=== PATIENT | female | born 1960 | race Caucasian/White ===

== ENCOUNTER 2022-09-07 13:00 | Outpatient (RCR) | payer BC, SELFPAY | END 2022-10-18 07:53 | disposition home or self-care (01) | PROVIDERS: PCP Physician Assistant; Visit Provider Physician Assistant | DX: M54.42 Lumbago with sciatica, left side (principal); M54.41 Lumbago with sciatica, right side; Z51.89 Encounter for other specified aftercare | CPT/HCPCS: 97110; 97140; 97162 ==

== ENCOUNTER 2023-03-27 09:00 | Outpatient (RCR) | payer MEDICARE, BC, SELFPAY | END 2023-05-19 07:06 | disposition home or self-care (01) | PROVIDERS: PCP Physician Assistant; Visit Provider Internal Medicine Rheumatology | DX: M25.512 Pain in left shoulder (principal); M54.40 Lumbago with sciatica, unspecified side; G89.29 Other chronic pain; M25.551 Pain in right hip; M25.552 Pain in left hip; R26.9 Unspecified abnormalities of gait and mobility; R26.81 Unsteadiness on feet; R53.1 Weakness; Z51.89 Encounter for other specified aftercare | CPT/HCPCS: 97110; 97140; 97162; 97163; 97535 ==